=== PATIENT | male | born 1960 | race Caucasian/White ===

== ENCOUNTER 2017-03-26 14:53 | Outpatient (CLI) | payer OTHER ==
--- NOTE | 2017-04-01 16:52 | DIAGNOSTIC IMAGING REPORT ---
PROCEDURE: US ART LOWER EXT WITH LOUIE-B/L INDICATION: Left leg claudication. Smoking history. No history of diabetes. TECHNIQUE: Preexercise ABIs were performed, followed by color Doppler duplex imaging of the lower extremities. COMPARISON: None. FINDINGS: RIGHT LOWER EXTREMITY: ABIs: Pre exercise ABIs are normal (posterior tibial 1.2, dorsalis pedis 0.9). VESSELS: Marked calcified atheromatous changes. RIGHT LOWER EXTREMITY PEAK SYSTOLIC VELOCITIES: External iliac: Triphasic 168 cm/second. Common femoral artery: Triphasic 74 cm/second. Profunda femoral artery: Triphasic 172 cm/second. Proximal superficial femoral artery: Triphasic 89 cm/second. Mid superficial femoral artery: Triphasic 118 cm/second. Distal superficial femoral artery: Triphasic 82 cm/second. Popliteal artery: Triphasic 44 cm/second. Proximal posterior tibial artery: Triphasic 102 cm/second. Proximal anterior tibial artery: Triphasic 38 cm/second. Peroneal artery: N/A cm/second. Distal posterior tibial artery: Triphasic 165 cm/second. Dorsalis pedis artery: Triphasic 49 cm/second. LEFT LOWER EXTREMITY: ABIs: Pre exercise ABIs are moderately to severely diminished (posterior tibial 0.5, dorsalis pedis 0.4). VESSELS: Marked calcified atheromatous changes. LEFT LOWER EXTREMITY PEAK SYSTOLIC VELOCITIES: External iliac: Triphasic 148 cm/second. Common femoral artery: Triphasic 74 cm/second. Profunda femoral artery: Triphasic 262 cm/second. Proximal superficial femoral artery: Triphasic 55 cm/second. Mid superficial femoral artery: Triphasic 95 cm/second. Distal superficial femoral artery: Monophasic 26 cm/second. Popliteal artery: Occluded with collateral vessels. Proximal posterior tibial artery: Monophasic 24 cm/second. Proximal anterior tibial artery: Monophasic 35 cm/second. Peroneal artery: N/A cm/second. Distal posterior tibial artery: Monophasic 34 cm/second. Dorsalis pedis artery: Monophasic 20 cm/second. IMPRESSION: 1. Marked calcified atheromatous changes of lower extremity arterial system. 2. 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 3. No evidence of arterial insufficiency of the right lower extremity. 4. Findings discussed with Dr. Abbie Joiner.
== END 2017-03-26 23:00 ==
LOC: US SRH 14:53
DX: I73.9 Peripheral vascular disease, unspecified (principal)

== ENCOUNTER 2017-04-14 13:38 | Outpatient (CLI) | payer OTHER ==
--- NOTE | 2017-04-14 15:07 | DIAGNOSTIC IMAGING REPORT ---
PROCEDURE: US ABDOMEN VASCULAR-AAA INDICATION: SCREENING FOR AAA TECHNIQUE: Wiseman scale and color Doppler sonographic images of the abdomen were obtained. COMPARISON: None. FINDINGS: PROXIMAL ABDOMINAL AORTA: 3.7 x 3.8 cm, velocity 61 cm/sec MIDABDOMINAL AORTA: 2.5 x 2.2 cm, velocity 60 cm/sec DISTAL ABDOMINAL AORTA: 3.1 x 3.7 cm, velocity variable. RIGHT COMMON ILIAC ARTERY: 8 mm x 10 mm, velocity 176 cm/sec LEFT COMMON ILIAC ARTERY: 1.3 x 1 cm, velocity 104 cm/sec IMPRESSION: 1. Proximal abdominal aorta 3.8 cm, mid aorta 2.5 cm, distal aorta 3.7 cm. 2. Possible stenosis in the right common iliac artery.
== END 2017-04-14 23:00 ==
LOC: US SRH 13:38
DX: Z13.6 Encounter for screening for cardiovascular disorders (principal)

== ENCOUNTER 2017-04-24 07:39 | Outpatient (CLI) | payer OTHER ==
--- NOTE | 2017-04-24 10:39 | DIAGNOSTIC IMAGING REPORT ---
PROCEDURE: XR CHEST 2 VIEW INDICATION: Chest pain TECHNIQUE: PA and lateral views. COMPARISON: None. FINDINGS: There is a nodule of left mid lung field that measures 5-6 mm. Lungs are hyperexpanded. Heart and pulmonary vasculature normal. IMPRESSION: 1. 5-6 mm left pulmonary nodule.
--- NOTE | 2017-04-24 12:02 | DIAGNOSTIC IMAGING REPORT ---
PROCEDURE: US ABDOMEN ULTRASOUND-COMPLETE INDICATION: Chronic hepatitis C TECHNIQUE: Wiseman scale and color Doppler sonographic images of the abdomen were obtained without comparison. COMPARISON: None. FINDINGS: Hepatic parenchyma is mildly diffusely hyperechoic. Multiple parenchymal septated cysts are seen measuring from 6 mm to 2.4 mm. Hepatic veins demonstrate appropriate phasicity. Retrohepatic inferior vena cava is patent. The portal vein is slightly dilated measuring up to 16 mm and there is an area in the proximal intrahepatic portal vein which demonstrates biphasic flow, although the majority of the portal flow is appropriate/hepatopetal. No solid liver masses or biliary dilatation. The gallbladder contains multiple tiny mobile stones. The wall is normal thickness measuring 2.2 mm. No pericholecystic fluid or Sauceda sign. The extrahepatic common duct is normal measuring 5.5 mm. The visualized pancreas is normal without mass. The main pancreatic duct is visible but nondilated. The proximal abdominal aorta is mildly aneurysmal measuring 3.6 cm in AP diameter and moderately irregular in contour secondary to coarse calcific atherosclerosis. The distal portion is aneurysmal measuring approximately 3.3 cm diameter. There is eccentric calcification. The right kidney measures 9.6 cm in length. The left kidney measures 11.2 cm in length. Right renal cortical echogenicity is isoechoic to liver, but hyperechoic compared to the left kidney. Tiny corticomedullary cysts in the left kidney inferior pole. Both kidneys demonstrate otherwise normal morphology and cortical thickness without hydronephrosis, solid mass, or shadowing calculus. Color Doppler imaging demonstrates normal blood flow in each kidney. The spleen is normal in size measuring 7.7 cm in length. There is no perihepatic or perisplenic ascites. IMPRESSION: 1. Multiple septated hepatic cysts. No solid liver masses. 2. Mildly prominent main portal vein with an area of questionable bidirectional flow. This may indicate early portal hypertension. The spleen size is normal. 3. Moderate aortic atherosclerosis with mildly aneurysmal proximal and distal segments. The distal fusiform aneurysm measures 3.3 cm in AP diameter on the study. 4. Mobile cholelithiasis. 5. Mildly hyperechoic right renal cortex may indicate medical renal disease. Correlate with renal function. Normal left kidney with a few tiny cysts.
== END 2017-04-24 23:00 | disposition home or self-care (01) ==
LOC: XR SRH 07:39 → US SRH 07:39
DX: R91.1 Solitary pulmonary nodule (principal); K76.89 Other specified diseases of liver; I70.0 Atherosclerosis of aorta; K80.20 Calculus of gallbladder without cholecystitis without obstruction